=== PATIENT | female | born 1970 | race Caucasian/White ===

== ENCOUNTER → 2023-04-19 11:11 | Outpatient (REF) | payer OTHER, SELFPAY ==
[2023-04-19 13:38] LABS: Hepatitis B Surface Antibody Negative
[2023-04-19 19:18] LABS: Rubella Positive
[2023-04-21 17:16] LABS: Quantiferon Mitogen minus NIL >10.00 IU/mL; Quantiferon NIL 0.03 IU/mL; Quantiferon TB Gold Plus Negative (Negative)
[2023-04-22 18:10] LABS: Mumps Virus IgG Positive; Rubeola (Measles) IgG Positive; Varicella Zoster IgG (VZV) Positive
== END ==
LOC: OHS 11:11
PROVIDERS: ATTENDING PHYSICIAN Nurse Practitioner Family
DX: Z23 Encounter for immunization (principal)
CPT/HCPCS: 36415; 86480; 86706; 86735; 86762; 86765; 86787

== ENCOUNTER 2024-10-08 13:42 | Emergency (ER) | payer BC, SELFPAY ==
[2024-10-08 13:58] VITALS: BP 165/113
--- NOTE | 2024-10-08 14:34 | ED.GENMED ---
History of Present Illness
General
Chief Complaint: Anxiety
Source: patient
Exam Limitations: none
Time Seen by Provider: 10/08/24 14:04
Nursing documentation reviewed up to this point in time: agreed with
History of Present Illness
History of Present Illness:
Patient to ED with complaint of anxiety. States she has a lot of stress at home and at work. SHe does not feel like she is liked by her co-workers and is not get along with them. Was taking zoloft for her anxiety and felt this was helpful but
stopped med on own a few months ago. SHe states she plans to restart today. Today she hit her limit while at work. SHe met with HR and was asked to come to ED. SHe denies HI, SI.'. States she just wants someone to listen. Denies fever/chills
recent illness. No recent changes to health/medications (except discontinuing zoloft). SHe had a therapist in the past but stopped because she did not like reliving her past. Agreeable to meet with crisis.
Past History
Past History
ED Past Medical History: HTN, Psychiatric (anxiety) and Other (cirrhosis - on transplant list)
Social History
Alcohol: Former (Stopped 3 years ago)
Review of Systems
Review of Systems
Allergies reviewed?: Yes
All Other Systems: ROS reviewed and negative except as documented in HPI and ROS
Constitutional: Reports no symptoms
EENT: Reports no symptoms
Respiratory: Reports no symptoms
Cardiac: Reports no symptoms
ABD/GI: Reports no symptoms
: Reports no symptoms
Musculoskeletal: Reports no symptoms
Skin: Reports no symptoms
Neurological: Reports no symptoms
Psychiatric: Reports anxiety
Phy Exam
General Physical Exam
General Presentation: mild distress
General age: appears stated age
General Skin: warm and dry
General Habitus: normal
General Mental: tearful
General Hydration: appears well hydrated
Cardiovascular Exam
Cardiovascular Exam: regular rate/rhythm and no edema
Pulmonary Exam
Pulmonary Exam: lungs clear and no respiratory distress
Musculoskeletal Exam
Musculoskeletal Exam: full ROM and neuro vasc intact
Skin Exam
Skin Exam: normal color, warm/dry and no rash
Psychiatric Exam
Psychiatric Exam: anxious and depressed
Course
Orders/Labs/Results
Orders:
Orders
10/08/24 14:32
Crisis Consult Urgent
Reason for Consult: anxiety
Vital Signs
Initial and Last Documented VS:
Initial Vital Signs
Temp Pulse Resp BP Pulse Ox
97.9 F 127 18 165/113 94
10/08/24 13:58 10/08/24 13:58 10/08/24 13:58 10/08/24 13:58 10/08/24 13:58
Last Documented Vital Signs
Temp Pulse Resp BP Pulse Ox
97.9 F 127 18 165/113 94
10/08/24 13:58 10/08/24 13:58 10/08/24 13:58 10/08/24 13:58 10/08/24 14:35
*Pulse Oximetry
SaO2: 94
Oxygen Mode of Delivery: Room air
Patient hypoxic: no
*Critical Care Note
Total Time (30-74mins, 75-104mins- exclusive of procedures): Not Applicable
Update Note
Update Note:
Patient to ED for complaint of anxiety/depression. States she had 'a meltdown' at work. Denies SI, HI. Prescribed zoloft which has been helpful in the past. SHe stopped on own a few months ago. Agreed to restart tonight. Would like to start
therapy again. Crisis consult placed. Given information for outpatient treatment. Will be discharged home and she states she will call in AM to schedule appointment. Given instructions on s/s to return to ED and she is agreeable to plan.
ED Attending Note
-
Portions of this chart may have been created with voice recognition software.� Occasional wrong word or��sound alike� substitutions may have occurred due to the inherent limitations of voice recognition software.
Discharge Plan
Departure
Patient Disposition: Home (Routine Discharge)
Date of Disposition: 10/08/24
Time of Disposition: 14:55
Patient with high blood pressure during this ER visit?: No
Condition: Good
Covid-19: Not Applicable
Discharge Problem:
Anxiety and depression
Instructions: Depression, Adult (DC), Anxiety, Adult (DC)
Referrals:
NONE,* [Family Provider, Internal Medicine]
Stand Alone Forms: Return to Work
Activity Restrictions/Additional Instructions:
Restart your zoloft. Please call the therapist in the AM and schedule an appointment. Return to the emergency department immediately for any worsening symptoms.
Interventions
Interventions:
*Risk Screen - Suicide Last Done: 10/08/24 13:58
*General Assessment Last Done: 10/08/24 13:58
*Neglect/Abuse Screening Last Done: 10/08/24 13:58
*ED- Fall Risk Assessment Last Done: 10/08/24 13:58
*ED COVID-19 Vaccine History Last Done: 10/08/24 13:58
*Nursing Disposition Last Done: 10/08/24 15:16
ED-Psychological Assessment Last Done: 10/08/24 13:58
Discharge Date and Time
Print Language: GHANAIAN
== END 2024-10-08 15:17 | disposition home or self-care (01) ==
LOC: EMR 13:42
PROVIDERS: EMERGENCY PHYSICIAN Emergency Medicine
DX: F41.9 Anxiety disorder, unspecified (principal); F32.A Depression, unspecified; I10 Essential (primary) hypertension; K74.60 Unspecified cirrhosis of liver
CPT/HCPCS: 99283

== ENCOUNTER 2024-10-12 09:55 | Emergency (ER) | payer BC, SELFPAY ==
[2024-10-12 10:01] VITALS: BP 140/92
--- NOTE | 2024-10-12 11:33 | ED.GENMED ---
History of Present Illness
General
Chief Complaint: Alcohol Problem
Source: patient
Exam Limitations: none
Time Seen by Provider: 10/12/24 11:17
History of Present Illness
History of Present Illness:
54-year-old female presents after being noticed to have difficultly ambulating today at work. She denies any headache or pain. She has history of cirrhosis. She has been through a relapse recently. She denies thoughts of harming self or others.
She does express some frustration about being sent here for evaluation. She admits to having an alcoholic beverage last evening and finished drinking around 10 PM last night. She states that she was walking and texting on her phone and felt
somewhat unsteady at that time. No other complaints at this time
Past History
Past History
ED Past Medical History: HTN, Psychiatric (anxiety) and Other (cirrhosis - on transplant list)
Social History
Alcohol: Former (Stopped 3 years ago)
Phy Exam
Physical Exam
Physical Exam:
General: Well-appearing female no acute respiratory distress
HEENT: Normocephalic atraumatic
Heart: Regular rate and rhythm
Lungs: Clear no wheeze
Neurologic exam: Alert oriented no facial asymmetry no weakness on exam
Skin is warm no rash
Scores
Withdrawal Assessment of Alcohol
Withdrawal Assessment Completed?: No
Course
Orders/Labs/Results
Orders:
Orders
10/12/24 12:01
Alcohol Urgent
Ammonia Urgent
Complete Blood Count/With Diff Urgent
Comprehensive Metabolic Panel Urgent
Lipase Urgent
Manual Differential Urgent
10/12/24 12:10
Drug Screen, Urine [Urine Drug Abuse Screen] Urgent
Date Specimen was Collected: 10/12/24
Time Specimen was Collected: 12:00
Abnormal Lab Results
10/12/24
12:01
WBC 2.4 L* 10^3/uL
(4.8-10.8)
MCH 32.0 H pg
(27.0-31.0)
Plt Count 57 L 10^3/uL
(130-400)
Abs Neuts (Manual) 1.1 L 10^3/uL
(1.4-6.5)
BUN 5 L mg/dl
(7-17)
Creatinine 0.5 L mg/dL
(0.6-1.0)
Glucose 110 H mg/dl
(70-99)
Calcium 7.7 L mg/dl
(8.4-10.2)
Total Bilirubin 3.4 H mg/dl
(0.2-1.3)
AST 268 H U/L
(14-36)
ALT 70 H U/L
(0-35)
Alkaline Phosphatase 330 H U/L
(38-126)
Ammonia 35 H umol/L
(9-30)
10/12/24 12:01
10/12/24 12:01
Vital Signs
Initial and Last Documented VS:
Initial Vital Signs
Temp Pulse Resp BP Pulse Ox
97.6 F 102 18 140/92 97
10/12/24 10:01 10/12/24 10:01 10/12/24 10:01 10/12/24 10:01 10/12/24 10:01
Last Documented Vital Signs
Temp Pulse Resp BP Pulse Ox
97.6 F 102 18 140/92 97
10/12/24 10:01 10/12/24 10:01 10/12/24 10:01 10/12/24 10:01 10/12/24 11:39
MDM/Problems Addressed
Differential Diagnosis Includes:
Patient brought here for noticing to be unsteady when ambulating. Neurologically there is no unilateral weakness to suggest CVA. She is alert and oriented and conversing appropriately otherwise. She is interested in talking to be cares for her
alcohol abuse. They were contacted. Check labs.
*Pulse Oximetry
SaO2: 97
Oxygen Mode of Delivery: Room air
Patient hypoxic: no
*Critical Care Note
Total Time (30-74mins, 75-104mins- exclusive of procedures): Not Applicable
Update Note
Update Note:
Patient evaluated here labs were drawn. White count low, patient states this is chronic for her. LFTs are elevated which is also chronic for the patient. Blood alcohol level 324. Patient expressed her desire to be discharged. She required a
ride home to take her. Her friend, named Ebenezer came into the room and escorted her out of the emergency room. Stable for discharge. Patient did speak with [employer] outside industrial sales representative
ED Attending Note
-
Portions of this chart may have been created with voice recognition software.� Occasional wrong word or��sound alike� substitutions may have occurred due to the inherent limitations of voice recognition software.
Discharge Plan
Departure
Patient Disposition: Home (Routine Discharge)
Date of Disposition: 10/12/24
Time of Disposition: 16:27
Patient with high blood pressure during this ER visit?: No
Discharge Problem:
Alcohol use disorder
Instructions: Alcohol Use Disorder (DC)
Referrals:
Elyse Landry CRNP [Family Provider]
Activity Restrictions/Additional Instructions:
Return if needed
Interventions
Interventions:
*Risk Screen - Suicide Last Done: 10/12/24 10:01
*General Assessment Last Done: 10/12/24 12:45
*Neglect/Abuse Screening Last Done: 10/12/24 10:01
*ED- Fall Risk Assessment Last Done: 10/12/24 12:45
ED- Neurological Assessment Last Done: 10/12/24 12:13
ED-Psychological Assessment Last Done: 10/12/24 12:45
Discharge Date and Time
Print Language: MACEDONIAN
[2024-10-12 12:27] LABS: Hematocrit 39.8 % (37.0-47.0); Hemoglobin 14.0 g/dL (12.0-16.0); Mean Corp Hgb Conc. 35.2 g/dL (33.0-37.0); Mean Corpuscular Volume 91.1 fL (81.0-99.0); Red Cell Dist. Width 12.3 % (11.5-14.5)
[2024-10-12 12:35] LABS: Ammonia 35 umol/L (9-30)
[2024-10-12 12:50] LABS: ALT (SGPT) 70 U/L (0-35); AST (SGOT) 268 U/L (14-36); Albumin 3.8 g/dl (3.5-5.0); Alkaline Phosphatase 330 U/L (38-126); Blood Urea Nitrogen 5 mg/dl (7-17); Calcium 7.7 mg/dl (8.4-10.2); Carbon Dioxide 29 mmol/L (22-30); Chloride 105 mmol/L (98-107); Glucose 110 mg/dl (70-99); Lipase 104 U/L (23-300); Potassium 4.0 mmol/L (3.5-5.1); Sodium 142 mmol/L (135-145); Total Protein 7.1 g/dl (6.3-8.2); eGFR > 60.00
[2024-10-12 12:57] LABS: Absolute Neutrophils -Man Diff 1.1 10^3/uL (1.4-6.5); Normal RBC Morphology Yes; Platelet Count 57 10^3/uL (130-400); Platelets Checked Yes; Total Cells Counted 100
== END 2024-10-12 17:51 | disposition home or self-care (01) ==
LOC: EMR 09:55
PROVIDERS: Physician Assistant; EMERGENCY PHYSICIAN Emergency Medicine; FAMILY PHYSICIAN Nurse Practitioner Family
DX: F10.20 Alcohol dependence, uncomplicated (principal); Y90.9 Presence of alcohol in blood, level not specified; I10 Essential (primary) hypertension; K74.60 Unspecified cirrhosis of liver
CPT/HCPCS: 99283; 80053; 80306; 82077; 82140; 83690; 85025

== ENCOUNTER → 2024-11-17 10:23 | Outpatient (REF) | payer BC, SELFPAY ==
[2024-11-17 12:41] VITALS: BP 113/72; BP_SYST 105
[2024-11-17 13:21] VITALS: BP 110/75
[2024-11-17 13:50] LABS: Body Fluid Second Tech ASW
== END ==
LOC: RADI 10:23
PROVIDERS: ATTENDING PHYSICIAN Internal Medicine
DX: K70.31 Alcoholic cirrhosis of liver with ascites (principal)
CPT/HCPCS: 49083; 89051

== ENCOUNTER → 2024-11-25 08:34 | Outpatient (REF) | payer BC, SELFPAY ==
[2024-11-25 08:45] VITALS: BP 128/85; BP_SYST 112
[2024-11-25 09:30] VITALS: BP 119/81; BP_SYST 104
[2024-11-25 12:11] LABS: Body Fluid Second Tech CF
== END ==
LOC: RADI 08:34
PROVIDERS: ATTENDING PHYSICIAN Internal Medicine Transplant Hepatology; FAMILY PHYSICIAN Internal Medicine
DX: K70.31 Alcoholic cirrhosis of liver with ascites (principal)
CPT/HCPCS: 49083; 89051

== ENCOUNTER → 2024-12-02 08:18 | Outpatient (REF) | payer BC, SELFPAY ==
[2024-12-02 08:40] VITALS: BP 124/76; BP_SYST 131
[2024-12-02 09:29] VITALS: BP 105/71; BP_SYST 112
[2024-12-02 10:32] LABS: Body Fluid Second Tech SS
== END ==
LOC: RADI 08:18
PROVIDERS: ATTENDING PHYSICIAN Internal Medicine Transplant Hepatology; FAMILY PHYSICIAN Internal Medicine
DX: K70.31 Alcoholic cirrhosis of liver with ascites (principal)
CPT/HCPCS: 49083; 89051

== ENCOUNTER → 2024-12-09 08:13 | Outpatient (REF) | payer BC, SELFPAY ==
[2024-12-09 08:25] VITALS: BP 115/78; BP_SYST 114
[2024-12-09 10:48] LABS: Body Fluid Second Tech ASW
== END ==
LOC: RADI 08:13
PROVIDERS: ATTENDING PHYSICIAN Internal Medicine Transplant Hepatology
DX: K70.31 Alcoholic cirrhosis of liver with ascites (principal)
CPT/HCPCS: 49083; 89051

== ENCOUNTER → 2024-12-16 08:27 | Outpatient (REF) | payer BC, SELFPAY ==
[2024-12-16 08:37] VITALS: BP 111/72; BP_SYST 114
[2024-12-16 09:22] VITALS: BP 104/68
[2024-12-16 10:30] LABS: Body Fluid Second Tech SS
== END ==
LOC: RADI 08:27
PROVIDERS: ATTENDING PHYSICIAN Internal Medicine Transplant Hepatology
DX: R18.8 Other ascites (principal)
CPT/HCPCS: 49083; 89051

== ENCOUNTER 2024-12-20 13:04 | Inpatient (IN) | payer BC, SELFPAY ==
[2024-12-20] VITALS (8 sets, daily range): BP systolic 99–126; BP diastolic 57–79; BMI 27.1; BMI 25.1
--- NOTE | 2024-12-20 09:08 | ED.GENMED ---
History of Present Illness
<Twyla Ro PA-C - Last Filed: 12/20/24 20:52>
General
Chief Complaint: Fatigue
Source: patient
Exam Limitations: none
Time Seen by Provider: 12/20/24 08:51
Nursing documentation reviewed up to this point in time: agreed with
History of Present Illness
History of Present Illness:
Patient is a 54-year-old female with history of stage IV cirrhosis who presents to the emergency department with increased fatigue and abdominal discomfort. She states symptoms have progressively worsening over the past the past week. She does
have weekly paracenteses for abdominal ascites every Saturday. She has felt more discomfort in her upper abdomen over the past 2 days as well as increase in distention. She feels the fluid may have built up more quickly this time. She also
reports significant fatigue and mild shortness of breath. She is concerned that she is becoming encephalopathic.
Patient denies any fever or chills. No hematochezia or melena. No productive cough or exertional chest pain.
Patient denies any recent alcohol use.
Past History
<Twyla Ro PA-C - Last Filed: 12/20/24 20:52>
Past History
ED Past Medical History: HTN, Psychiatric (anxiety) and Other (cirrhosis - on transplant list)
Social History
Alcohol: Former (Stopped 3 years ago)
Review of Systems
<Twyla Ro PA-C - Last Filed: 12/20/24 20:52>
Review of Systems
Allergies reviewed?: Yes
All Other Systems: ROS reviewed and negative except as documented in HPI and ROS
Phy Exam
<Twyla Ro PA-C - Last Filed: 12/20/24 20:52>
Physical Exam
Physical Exam:
Vitals: Mildly tachycardic, otherwise stable vital signs. Afebrile
General: Patient is chronically ill-appearing, jaundiced
Skin: Jaundice with scattered purpura
Head: Normocephalic, atraumatic
Eyes: Scleral icterus bilaterally. EOMs intact. No nystagmus.
Throat: Protecting airway
Neck: Normal ROM, no cervical spine tenderness, no meningismus
Cardiac: Tachycardic, normal rhythm, no murmurs.
Pulm: Normal respiratory effort. Lungs clear
.
Abdomen: Distended. Soft with diffuse tenderness.
Extremities: Pitting edema of bilateral lower extremities.
Neuro: AAOx3. No neurologic deficits. No focal weakness.
Psychiatric: Normal affect.
Course
<Twyla Ro PA-C - Last Filed: 12/20/24 20:52>
Orders/Labs/Results
Orders:
Orders
12/20/24 09:03
Electrocardiogram (*1) Urgent
Reason for Study: Shortness of Breath
EKG- Treatment ONCE
12/20/24 09:04
CR Chest - 2 Views Urgent
Comment:
Reason For Exam: SOB
12/20/24 10:22
Ammonia Urgent
Bilirubin Direct [Direct Bilirubin] Urgent
Complete Blood Count/With Diff Urgent
Comprehensive Metabolic Panel Urgent
Lipase Urgent
PTT Urgent
Prothrombin Time Urgent
12/20/24 11:00
CT Abd/pelvis W Iv Cont Urgent
Comment: hx cirrhosis
Reason For Exam: abdominal pain/ distention
12/20/24 12:52
Admit/Transfer Patient As Directed
Co-Sign Provider:
Level of Care: Inpatient admission
Assign to:: Medical/Surgical
Physician / Group: spencer
Diagnosis: decompensated cirrhosis
Reason for Hospitalization: decompensated cirrhosis
Expected length of stay greater than two midnights?: Yes
ELOS- Estimated Length of Stay in days: 2
I certify the patient meets the requirements for IP care: Yes
PRN Pain Medication Management As Directed
May give lesser potent ordered pain med per pt: Yes
preference::
Protocol:: Medication orders for pain may be administered in a
manner that supports deferring to patient preference
when the pt is:
- Requesting an ordered lesser potent pain medication.
Least to most potent pain medications are defined
as: acetaminophen < NSAID < tramadol < opioids
(morphine, oxycodone, hydromorphone).
- Requesting a lesser dose of the same medication IF
ORDERED.
- Requesting a less intrusive route of administration
if both routes are prescribed by the provider (PO <
IV).
12/20/24 12:53
Code Status As Directed
Resuscitation Status: Full Code
12/20/24 13:01
Furosemide [Lasix] 40 mg IV NOW STA
12/20/24 13:58
Consult Interventional Radiology [IRAD CONSULT] Routine
Consulting Provider: Arley Lozada
Was physician already notified: Yes
Procedure being ordered, including laterality if applicable: para
Acknowledgement that appropriate orders are entered: Yes
GASTROINTESTINAL CONSULT Routine
Consulting Provider: Renato Sam
Was physician already notified: Yes
Activity As Directed
Activity Level: As Tolerated
Vital Signs As Directed
Frequency: Per unit guidelines
IRAD Cytology Routine
Source: Peritoneal Fluid
Clinical Impression: ascites, sbp
DX Deep Vein Thrombosis Video Routine
12/20/24 14:00
Lactulose [Duphalac/Chronulac] 20 grams PO DAILY
12/20/24 Dinner
Regular
At Your Request: Limited Participation
12/20/24 20:00
Heparin 5,000 units SC Q12
12/21/24 08:00
Furosemide [Lasix] 40 mg PO DAILY
Spironolactone [Aldactone] 100 mg PO DAILY
Abnormal Lab Results
12/20/24
10:22
RBC 3.65 L 10^6/uL
(4.20-5.40)
Hct 34.8 L %
(37.0-47.0)
MCH 34.0 H pg
(27.0-31.0)
Plt Count 85 L 10^3/uL
(130-400)
MPV 10.6 H fL
(7.4-10.4)
Abs Immat Gran (auto) 0.1 H 10^3/uL
(0-0.05)
Absolute Lymphs (auto) 0.6 L 10^3/uL
(1.2-3.4)
Immature Gran % 1.2 H %
(0-0.5)
Neutrophils % 84.6 H %
(42.2-75.2)
Lymphocytes % 8.3 L %
(20.5-51.1)
PT 20.6 H Sec
(11.4-14.6)
APTT 40.0 H Sec
(23.4-35.0)
Sodium 123 L mmol/L
(135-145)
Chloride 96 L mmol/L
(98-107)
BUN 28 H mg/dl
(7-17)
Calcium 7.4 L mg/dl
(8.4-10.2)
Total Bilirubin 17.6 H mg/dl
(0.2-1.3)
Direct Bilirubin 15.5 H mg/dl
(0.0-0.4)
AST 170 H U/L
(14-36)
ALT 60 H U/L
(0-35)
Alkaline Phosphatase 244 H U/L
(38-126)
Ammonia 60 H umol/L
(9-30)
Total Protein 5.8 L g/dl
(6.3-8.2)
Albumin 2.2 L g/dl
(3.5-5.0)
Lipase 337 H U/L
(23-300)
12/20/24 10:22
12/20/24 10:22
Vital Signs
Initial and Last Documented VS:
Initial Vital Signs
Temp Pulse Resp BP Pulse Ox
98.5 F 111 18 107/74 99
12/20/24 08:42 12/20/24 08:42 12/20/24 08:42 12/20/24 08:42 12/20/24 08:42
Last Documented Vital Signs
Temp Pulse Resp BP Pulse Ox
97.9 F 111 18 120/62 98
12/20/24 15:00 12/20/24 15:00 12/20/24 15:00 12/20/24 15:00 12/20/24 15:00
<Malika Vidal, DO - Last Filed: 12/20/24 11:27>
Orders/Labs/Results
Orders:
Orders
12/20/24 09:03
Electrocardiogram (*1) Urgent
Reason for Study: Shortness of Breath
EKG- Treatment ONCE
12/20/24 09:04
CR Chest - 2 Views Urgent
Comment:
Reason For Exam: SOB
12/20/24 10:22
Ammonia Urgent
Bilirubin Direct [Direct Bilirubin] Urgent
Complete Blood Count/With Diff Urgent
Comprehensive Metabolic Panel Urgent
Lipase Urgent
PTT Urgent
Prothrombin Time Urgent
12/20/24 11:00
CT Abd/pelvis W Iv Cont Urgent
Comment: hx cirrhosis
Reason For Exam: abdominal pain/ distention
12/20/24 12:52
Admit/Transfer Patient As Directed
Co-Sign Provider:
Level of Care: Inpatient admission
Assign to:: Medical/Surgical
Physician / Group: spencer
Diagnosis: decompensated cirrhosis
Reason for Hospitalization: decompensated cirrhosis
Expected length of stay greater than two midnights?: Yes
ELOS- Estimated Length of Stay in days: 2
I certify the patient meets the requirements for IP care: Yes
PRN Pain Medication Management As Directed
May give lesser potent ordered pain med per pt: Yes
preference::
Protocol:: Medication orders for pain may be administered in a
manner that supports deferring to patient preference
when the pt is:
- Requesting an ordered lesser potent pain medication.
Least to most potent pain medications are defined
as: acetaminophen < NSAID < tramadol < opioids
(morphine, oxycodone, hydromorphone).
- Requesting a lesser dose of the same medication IF
ORDERED.
- Requesting a less intrusive route of administration
if both routes are prescribed by the provider (PO <
IV).
12/20/24 12:53
Code Status As Directed
Resuscitation Status: Full Code
12/20/24 13:01
Furosemide [Lasix] 40 mg IV NOW STA
12/20/24 13:58
Consult Interventional Radiology [IRAD CONSULT] Routine
Consulting Provider: Arley Lozada
Was physician already notified: Yes
Procedure being ordered, including laterality if applicable: para
Acknowledgement that appropriate orders are entered: Yes
GASTROINTESTINAL CONSULT Routine
Consulting Provider: Renato Sam
Was physician already notified: Yes
Activity As Directed
Activity Level: As Tolerated
Vital Signs As Directed
Frequency: Per unit guidelines
IRAD Cytology Routine
Source: Peritoneal Fluid
Clinical Impression: ascites, sbp
DX Deep Vein Thrombosis Video Routine
12/20/24 14:00
Lactulose [Duphalac/Chronulac] 20 grams PO DAILY
12/20/24 Dinner
Regular
At Your Request: Limited Participation
12/20/24 20:00
Heparin 5,000 units SC Q12
12/21/24 08:00
Furosemide [Lasix] 40 mg PO DAILY
Spironolactone [Aldactone] 100 mg PO DAILY
Abnormal Lab Results
12/20/24
10:22
RBC 3.65 L 10^6/uL
(4.20-5.40)
Hct 34.8 L %
(37.0-47.0)
MCH 34.0 H pg
(27.0-31.0)
Plt Count 85 L 10^3/uL
(130-400)
MPV 10.6 H fL
(7.4-10.4)
Abs Immat Gran (auto) 0.1 H 10^3/uL
(0-0.05)
Absolute Lymphs (auto) 0.6 L 10^3/uL
(1.2-3.4)
Immature Gran % 1.2 H %
(0-0.5)
Neutrophils % 84.6 H %
(42.2-75.2)
Lymphocytes % 8.3 L %
(20.5-51.1)
PT 20.6 H Sec
(11.4-14.6)
APTT 40.0 H Sec
(23.4-35.0)
Sodium 123 L mmol/L
(135-145)
Chloride 96 L mmol/L
(98-107)
BUN 28 H mg/dl
(7-17)
Calcium 7.4 L mg/dl
(8.4-10.2)
Total Bilirubin 17.6 H mg/dl
(0.2-1.3)
Direct Bilirubin 15.5 H mg/dl
(0.0-0.4)
AST 170 H U/L
(14-36)
ALT 60 H U/L
(0-35)
Alkaline Phosphatase 244 H U/L
(38-126)
Ammonia 60 H umol/L
(9-30)
Total Protein 5.8 L g/dl
(6.3-8.2)
Albumin 2.2 L g/dl
(3.5-5.0)
Lipase 337 H U/L
(23-300)
12/20/24 10:22
12/20/24 10:22
Vital Signs
Initial and Last Documented VS:
Initial Vital Signs
Temp Pulse Resp BP Pulse Ox
98.5 F 111 18 107/74 99
12/20/24 08:42 12/20/24 08:42 12/20/24 08:42 12/20/24 08:42 12/20/24 08:42
Last Documented Vital Signs
Temp Pulse Resp BP Pulse Ox
97.9 F 111 18 120/62 98
12/20/24 15:00 12/20/24 15:00 12/20/24 15:00 12/20/24 15:00 12/20/24 15:00
<Twyla Ro PA-C - Last Filed: 12/20/24 20:52>
MDM/Problems Addressed
Differential Diagnosis Includes:
Not limited to: ascites, pancreatitis, hepatic encephalopathy, electrolyte abnormality, acute dehydration, anemia, etc.
MDM/Problems Addressed:
54-year-old female with stage IV liver cirrhosis presenting with worsening weakness and abdominal distention. No fever. No significant abdominal pain or chest pain. Patient has stable vital signs on arrival. On exam, patient chronically ill
appearing. She has bilateral scleral icterus and significant jaundice. Abdomen distended without any areas of focal tenderness. Cardio/pulmonary assessment unremarkable.
Basic labs reveal thrombocytopenia, hyponatremia, bilirubinemia and transaminitis.
Given significant interval change in bilirubin � will obtain CT scan abdomen/pelvis to r/o obstructive process or intra-abdominal abnormality.
CT scan reveals large amount of ascites without other acute findings. No evidence of obstruction.
Given significant abdominal distention she will likely require paracentesis prior to scheduled appointment on Saturday. No fever. Do not suspect SBP at this time. Patient appears quite edematous suggesting likely hypervolemic hyponatramia.
Will hold IV fluids at this time.
Ultimately, she will require admission for further management. Accepted to hospitalist service.
Chronic conditions affecting care:
Stage IV cirrhosis
Acute Exacerbation and/or Progression of Chronic Illness:
Abdominal ascites and hyponatremia secondary to liver cirrhosis
<Twyla Ro PA-C - Last Filed: 12/20/24 20:52>
*Radiology
Radiology exam reviewed: radiology read reviewed
*Pulse Oximetry
SaO2: 99
Oxygen Mode of Delivery: Room air
Patient hypoxic: no
*EKG
Interpreted by ED Provider?: NA
EKG Intrepretation Date: 12/20/24
Interpretation: normal
Comparison EKG: no comparison EKG present
Heart Rate: 100
Rate: normal
Rhythm: sinus
Josephine: normal axis
Interval: normal QT interval
QRS Pattern: poor R-wave progression
Ischemia: non-specific ST changes
*Tile Presser Interpretation
Rate: tachycardiac
Interpretation: abnormal
Heart Rate: 108
Rhythm: sinus
*Critical Care Note
Total Time (30-74mins, 75-104mins- exclusive of procedures): Not Applicable
Data Reviewed
Review of Other/Old Records Reveals: Testing (Therapeutic paracenteses performed 12/16/2024 which drained 3350 cc clear gold ascitic fluid)
<Twyla Ro PA-C - Last Filed: 12/20/24 20:52>
Patient Management
Discussion with other providers: Hospitalist
Escalation/DeEscalation of care consider admission/obs:
Admit for further management
ED Attending Note
<Twyla Ro PA-C - Last Filed: 12/20/24 20:52>
-
Portions of this chart may have been created with voice recognition software.� Occasional wrong word or��sound alike� substitutions may have occurred due to the inherent limitations of voice recognition software.
<Malika Vidal DO - Last Filed: 12/20/24 11:27>
ED Attending Note
Patient seen and examined by attending physician: Yes
I performed the substantive portion of visit, reviewed & personally made and approve the management plan that is documented in note by myself or VANESSA.: Yes
I performed a history and physical exam of patient and discussed management with resident, I reviewed resident's note and agree with documented findings and plan of care.: Yes
ED Attending Note:
54-year-old female with history of alcoholic cirrhosis presenting to the emergency department for fatigue, weakness, abdominal pain. Patient reports she gets weekly paracentesis, last had a paracentesis on Saturday. Notes that she has not had any
alcohol for the past month. She has had difficulty tolerating p.o., difficulty sleeping. She has been following with [facility] for her cirrhosis, is on the transplant list. Denies fever or chest pain. Does note some shortness of breath. Vital signs
on arrival are significant for tachycardia.
On exam, patient is resting comfortably, no acute distress. Benign cardiac and pulmonary exam. Some distention to the abdomen without focal tenderness, generalized discomfort. No rebound or guarding. Patient afebrile, nontoxic. Suspect etiology
of symptoms is acute on chronic cirrhosis. Patient also noted to be jaundiced which she reports is chronic. Laboratory analysis obtained prior to my assessment which show acute worsening of labs since September. Worsening bilirubin and LFTs.
Patient also has hyponatremia of 123. With patient's ascites, suspected hypervolemic hyponatremia. Holding IV fluids at this time. Lipase is also elevated. Given patient's presenting symptoms and lab abnormalities, plan abdomen/pelvis.
Ultimately feel patient warrants admission for likely paracentesis and monitoring of her sodium
Discharge Plan
Departure
Patient Disposition: Admit
Date of Disposition: 12/20/24
Time of Disposition: 12:26
Presentation/result/management discussed w/ accepting MD/DO: Hospitalist
Discharge Problem:
Hyponatremia, Abdominal ascites, Cirrhosis of liver
Interventions
Interventions:
*Risk Screen - Suicide Last Done: 12/20/24 08:42
*General Assessment Last Done: 12/20/24 12:09
*Neglect/Abuse Screening Last Done: 12/20/24 08:42
*ED- Fall Risk Assessment Last Done: 12/20/24 12:09
*ED COVID-19 Vaccine History Last Done: 12/20/24 12:09
*ED Influenza Vaccine History Last Done: 12/20/24 12:09
*Nursing Disposition Last Done: 12/20/24 13:50
Discharge Date and Time
Discharge Date/Time: 12/20/24 14:12
[2024-12-20 10:34] LABS: Hematocrit 34.8 % (37.0-47.0); Hemoglobin 12.4 g/dL (12.0-16.0); Mean Corp Hgb Conc. 35.6 g/dL (33.0-37.0); Mean Corpuscular Volume 95.3 fL (81.0-99.0); Nucleated Red Blood Cells % 0 %; Red Cell Dist. Width 13.2 % (11.5-14.5)
[2024-12-20 10:40] LABS: APTT 40.0 Sec (23.4-35.0); INR 1.74; PT 20.6 Sec (11.4-14.6)
[2024-12-20 10:45] LABS: Ammonia 60 umol/L (9-30)
[2024-12-20 10:47] LABS: ALT (SGPT) 60 U/L (0-35); AST (SGOT) 170 U/L (14-36); Albumin 2.2 g/dl (3.5-5.0); Alkaline Phosphatase 244 U/L (38-126); Blood Urea Nitrogen 28 mg/dl (7-17); Calcium 7.4 mg/dl (8.4-10.2); Carbon Dioxide 24 mmol/L (22-30); Chloride 96 mmol/L (98-107); Estimated Creatinine Clearance 61 ml/min; Glucose 98 mg/dl (70-99); Lipase 337 U/L (23-300); Potassium 4.2 mmol/L (3.5-5.1); Sodium 123 mmol/L (135-145); Total Protein 5.8 g/dl (6.3-8.2); eGFR > 60.00
[2024-12-20 11:51] LABS: Platelet Count 85 10^3/uL (130-400)
--- NOTE | 2024-12-20 13:05 | HPS.HSE ---
Addendum entered and electronically signed by Avery Acuña MD 12/20/24 14:18:
Patient refusing lactulose. Medication records rifaximin has not been recently filled.
Original Note:
Family Physician
-
Family Physician: Rito Castle
Chief Complaint
-
abdominal distention
History of Present Illness
54-year-old female past medical history of alcoholic cirrhosis status post TIPS few years ago, hypertension, anxiety, presenting with increased fatigue and abdominal discomfort. Symptoms worsening over the past week. She has weekly paracentesis
performed every Saturday for abdominal ascites. She has discomfort in her upper abdomen over the past 2 days and increased distention. She feels the fluid has built up more quickly this time. She has mild shortness of breath with dry cough. She
is concerned that she is becoming encephalopathic. Denies fevers but has chills. She did have an episode of vomiting without blood and dry heaving. Denies any blood in the stool. Denies cough or chest pain. Denies any recent alcohol use.
She take spironolactone and was previously on Bumex but was told to stop it because of muscle cramps. She takes rifaximin but not lactulose. She has a TIPS shunt and told that it would need to be replaced soon. She denies any prior history of
spontaneous bacterial peritonitis.
She did not drink alcohol since February of this year. She denies smoking or drugs.
She is currently on liver transplant list for [place].
Medical History
Past Medical History
Past Medical History: Reports Other (alcoholic cirrhosis status post TIPS few years ago, hypertension, anxiety)
Past Surgical History: Reports Other (hysterectomy )
Social History
Tobacco: Non-smoker
Alcohol: Former
Drug: None
Family History
Family History: Not pertinent
Allergies / Home Medications
Allergies reflects when Allergies were last updated in [facility].
Home Medications with original date entered in [facility]
Allergy/Medication List:
Allergies
Allergy/AdvReac Type Severity Reaction Status Date / Time
acetaminophen (From Allergy Unknown Verified 12/16/24 08:36
Tylenol-Codeine)
codeine (From Allergy Unknown Verified 12/16/24 08:36
Tylenol-Codeine)
Home Medications
cholecalciferol (vitamin D3) 25 mcg (1,000 unit) capsule (Vitamin D3) 25 mcg PO DAILY 11/17/24
ciprofloxacin HCl 500 mg tablet (Cipro) 500 mg PO DAILY 11/17/24
ondansetron HCl 4 mg tablet 4 mg PO [id number] PRN nausea 11/17/24
pantoprazole 40 mg tablet,delayed release 40 mg PO DAILY 11/17/24
rifaximin 550 mg tablet (Xifaxan) 550 mg PO DAILY 11/17/24
spironolactone 100 mg tablet 100 mg PO DAILY 11/17/24
thiamine HCl (vitamin B1) 100 mg capsule 100 mg PO DAILY 11/17/24
trazodone 50 mg tablet 50 mg PO HS 11/17/24
vitamin B12 1 mg-folic acid 0.8 mg tablet 1 tab PO DAILY 11/17/24
Review of Systems
-
History Source: Patient
A 12 point ROS was completed and negative except as noted: Yes
Constitutional: Reports No Symptoms
EENT: Reports No Symptoms
Respiratory: Reports See HPI
Cardiac: Reports No Symptoms
Abdomen/GI: Reports See HPI
: Reports No Symptoms
Musculoskeletal: Reports No Symptoms
Skin: Reports No Symptoms
Neurological: Reports No Symptoms
Endocrine: Reports No Symptoms
Hematologic/Lymphatic: Reports No Symptoms
Psych: Reports No Symptoms
Physical Exam
Vital Signs
Vital Signs
Temp Pulse Resp BP Pulse Ox
98.5 F 99 13 106/68 99
12/20/24 08:42 12/20/24 12:00 12/20/24 09:32 12/20/24 09:00 12/20/24 09:32
Physical Exam
General: Well Developed, Well Nourished and No Apparent Distress
HEENT: NormoCephalic, Moist mucous membranes and Atraumatic
Respiratory: Clear
Cardiac: S1/S2 and Regular Rhythm; No Murmur or Rub
GI: Soft, Non Tender, Non Distended and Normal Bowel Sounds; No Organomegaly
Rectal: Deferred by Provider
Musculoskeletal: No Clubbing, No Cyanosis and No Edema
Skin: No Rash
Neuro: Nonfocal/grossly intact
Laboratory Results
-
12/20/24 10:22
12/20/24 10:22
Laboratory Results
PT 20.6 Sec (11.4-14.6) H 12/20/24 10:22
INR 1.74 12/20/24 10:22
APTT 40.0 Sec (23.4-35.0) H 12/20/24 10:22
Total Bilirubin 17.6 mg/dl (0.2-1.3) H 12/20/24 10:22
AST 170 U/L (14-36) H 12/20/24 10:22
ALT 60 U/L (0-35) H 12/20/24 10:22
Alkaline Phosphatase 244 U/L (38-126) H 12/20/24 10:22
Lipase 337 U/L (23-300) H 12/20/24 10:22
Data Reviewed
-
Lab Data: Labs Reviewed by me
Old Records: Reviewed
Impression/Plan
-
IMPRESSION:
PLAN:
# Reaccumulating Ascites secondary to decompensated cirrhosis with history of TIPS, rule out SBP
# History of hepatic encephalopathy
- Ammonia level of 60 from 35 few months ago, not acutely encephalopathic
-CT abdomen pelvis shows large amount of ascites, moderate thickening of the wall of the right colon and transverse colon suggesting portal colonopathy,
- IR for paracentesis and fluid studies to rule out SBP
-Will likely require albumin after drainage
-Hold off ceftriaxone for now
-Continue rifaximin, add lactulose 20 mg daily
-Patient on liver transplant list at [place]
- GI consulted
# Hypervolemic hyponatremia
- 40 IV Lasix and add 40 mg oral Lasix in addition to 100 mg spironolactone
# Dyspnea likely secondary to restrictive lung disease from ascites
- Chest x-ray does not appear to show any pleural effusions, report pending
Essential hypertension
Anxiety
Former significant alcohol use
Full code
DVT prophylaxis�heparin
Regular diet
[2024-12-20] MEDS: LASIX 40 MG IV (13:25)
--- NOTE | 2024-12-20 13:42 | EDCM ---
CM reviewed chart and met with pt bedside in ED. Lives alone, second floor condo with full flight of stairs to enter.
Independent in ADLs, personal care and ambulation at baseline, no assistive devices.
Pt gets weekly paracentesis, is on liver transplant at [facility].
Confirms prescription coverage.
Hx [facility] but unsure of agency, hx SNF [facility] in [place]
PCP: Rito Castle
Pharmacy: [facility]
Anticipate discharge home, CM will continue to follow for all discharge planning needs.
--- NOTE | 2024-12-20 14:29 | PTCARENOTE ---
Pt arrived to 2S via stretcher, ambulated to the bed with a standby assist. Full assessment completed. Scattered bruising noted to B/L arms, pt states from ' low platelets'. Scab noted to L forearm. Pt instructed on diet and to ring for assistance
with ambulation, verbalized understanding. Bed locked and in the lowest position, safety maintained. Oriented to room and call grant.
--- NOTE | 2024-12-20 14:31 | CON.GI ---
Consultation
-
Date/Time Consultation Performed: 12/20/24
Performing Provider: Selvin Sam MD
Reason for Consultation: cirrhosis
Medical History
Chief Complaint / HPI
Chief Complaint: fatigue, generalized pain
History of Present Illness:
The patient is a 54-year-old female with past medical history as noted presents with fatigue and generalized pain. She states that over the past week has been having increasing generalized complaints, overall not feeling well, with mild
nonproductive cough and fatigue. She has a longstanding history of cirrhosis secondary to alcohol, states is listed for OLT at [facility], followed by Dr. Cherry. She is decompensated in the past with ascites, status post TIPS 3
years ago though has required frequent paracentesis this year, weekly, last Was on December 16 with 3.3 L. She has a history of SBP in the past, on Cipro daily, though none of her studies here with SBP. She has a history of encephalopathy though on
rifaximin alone, also from a diuretic standpoint only on Aldactone. Her last drink was about 10 weeks ago. She denies any melena, hematochezia, fever or chills.On admission here she was found to be profoundly hyponatremic with a sodium of 123
which is new, bilirubin up to 17 from 3 in September.
Past Medical History
Past Medical History: Other (Cirrhosis secondary to alcohol, decompensated with encephalopathy, ascites and SBP, status post previous TIPS. Hypertension, anxiety)
Social History
Tobacco: Non-Smoker
Alcohol: Former
Family History
Family History: Reviewed & Not Pertinent
Allergies / Home Medications
Allergy/AdvReac Type Severity Reaction Status Date / Time
acetaminophen (From Allergy Unknown Verified 12/16/24 08:36
Tylenol-Codeine)
codeine (From Allergy Unknown Verified 12/16/24 08:36
Tylenol-Codeine)
�Medication �Instructions �Recorded
cholecalciferol (vitamin D3) 25 25 mcg PO DAILY 11/17/24
mcg (1,000 unit) capsule (Vitamin
D3)
ciprofloxacin HCl 500 mg tablet 500 mg PO DAILY 11/17/24
(Cipro)
ondansetron HCl 4 mg tablet 4 mg PO [id number] PRN nausea 11/17/24
pantoprazole 40 mg tablet,delayed 40 mg PO DAILY 11/17/24
release
rifaximin 550 mg tablet (Xifaxan) 550 mg PO DAILY 11/17/24
spironolactone 100 mg tablet 100 mg PO DAILY 11/17/24
trazodone 50 mg tablet 50 mg PO HS 11/17/24
cyanocobalamin (vitamin B-12) 1,000 mcg PO DAILY 12/20/24
1,000 mcg tablet
Review of Systems
-
All other systems: A 12 pt ROS was Negative except as stated above in HPI
Vital Signs
Temp Pulse Resp BP Pulse Ox
97.3 F 111 18 126/79 98
12/20/24 13:50 12/20/24 13:50 12/20/24 13:50 12/20/24 13:50 12/20/24 13:50
Physical Exam
Exam
General: NAD, alert and orient x 3, no asterixis, jaundice
HEENT: MMM, icteric, no lymphadenopathy
Heart: Regular, no murmurs
Lungs: CTA bilaterally
Abdomen: normal bowel sounds, significant ascites, though soft, mild epigastric tenderness, no rebound
Extremeties: 1+ edema
Skin: no rashes
Results
WBC 7.6 10^3/uL (4.8-10.8) 12/20/24 10:22
Hgb 12.4 g/dL (12.0-16.0) 12/20/24 10:22
Hct 34.8 % (37.0-47.0) L 12/20/24 10:22
MCV 95.3 fL (81.0-99.0) 12/20/24 10:22
Plt Count 85 10^3/uL (130-400) L 12/20/24 10:22
Absolute Neuts (auto) 6.4 10^3/uL (1.4-6.5) 12/20/24 10:22
PT 20.6 Sec (11.4-14.6) H 12/20/24 10:22
INR 1.74 12/20/24 10:22
APTT 40.0 Sec (23.4-35.0) H 12/20/24 10:22
Sodium 123 mmol/L (135-145) L 12/20/24 10:22
Potassium 4.2 mmol/L (3.5-5.1) 12/20/24 10:22
Chloride 96 mmol/L (98-107) L 12/20/24 10:22
Carbon Dioxide 24 mmol/L (22-30) 12/20/24 10:22
BUN 28 mg/dl (7-17) H 12/20/24 10:22
Creatinine 0.9 mg/dL (0.6-1.0) 12/20/24 10:22
Calcium 7.4 mg/dl (8.4-10.2) L 12/20/24 10:22
Total Bilirubin 17.6 mg/dl (0.2-1.3) H 12/20/24 10:22
AST 170 U/L (14-36) H 12/20/24 10:22
ALT 60 U/L (0-35) H 12/20/24 10:22
Alkaline Phosphatase 244 U/L (38-126) H 12/20/24 10:22
Lipase 337 U/L (23-300) H 12/20/24 10:22
Diagnostic Image Results:
CT:
IMPRESSION: Large amount of ascites is present.
No significant gaseous distention of the bowel.
Moderate thickening of the wall of the right colon and the transverse colon, findings suggestive of portal colonopathy.
Cirrhotic liver. TIPS shunt is present, and appears to be patent with contrast enhancement.
Splenomegaly.
Several punctate calcifications within the head of the pancreas, suggesting benign dystrophic calcifications.
Prior GI Procedures:
EGD:
Colonoscopy:
Assessment / Plan
-
1. Cirrhosis: Secondary to previous alcohol, decompensated with ascites, encephalopathy and edema, with previous SBP. She now presents with worsening hyponatremia, jaundice, now with MELD 3 of 29 which is significantly higher than her labs in
September. I have placed a call to [facility], as she states she is listed for transplant and this significant elevation may necessitate transfer for more urgent transplant. Will hold on repeat paracentesis for now, continue rifaximin and Cipro
daily. If not transferred would consult renal to help manage volume and sodium. Will continue to trend MELD labs.
-
-
Thank you for consultation and allowing me to participate in the patient's care. Please call the underwriting consultant GI physician during the after hours with any questions or concerns.
--- NOTE | 2024-12-20 15:20 | W.PN.UPDATE ---
Update Note
Progress Note Update
I discussed with [facility] and board certified behavioral analyst , patient is accepted for transfer urgently.
[2024-12-20] MEDS: ATIVAN 0.5 MG PO (17:34)
--- NOTE | 2024-12-20 18:14 | PTCARENOTE ---
Pt to be transferred to [facility], report given to greg JOE. Care ongoing at this time.
== END 2024-12-20 18:55 | disposition short-term general hospital (02) | DRG 433 ==
LOC: 2 SOUTH 13:04
PROVIDERS: Physician Assistant; ADMITTING PHYSICIAN Hospitalist; CONSULT PHYSICIAN Internal Medicine Gastroenterology; EMERGENCY PHYSICIAN Student in an Organized Health Care Education/Training Program; FAMILY PHYSICIAN Internal Medicine
DX: K70.31 Alcoholic cirrhosis of liver with ascites (principal); E87.1 Hypo-osmolality and hyponatremia; I10 Essential (primary) hypertension; F41.9 Anxiety disorder, unspecified; Z76.82 Awaiting organ transplant status; Z90.710 Acquired absence of both cervix and uterus; E87.70 Fluid overload, unspecified; J98.4 Other disorders of lung; Z79.899 Other long term (current) drug therapy
CPT/HCPCS: 71046; 74177; 80053; 82140; 82248; 83690; 85025; 85610; 85730; 93005; 99285; Q9967